=== PATIENT | male | born 1985 | race Caucasian/White ===

== ENCOUNTER 2024-04-26 03:36 | Inpatient (IN) | payer BC, MEDICAID ==
[~2024-04-26] VITALS: Ht 175.3 cm; Wt 95.7 kg
[2024-04-26] MEDS ORDERED: DILTIAZEM HCL 5MG/ML 5ML VIAL IV ONE (03:45)
[2024-04-26] MEDS: ADENOSINE 3 MG/ML 2ML VIAL IV ONE (04:03)
[2024-04-26] MEDS: DILTIAZEM HCL 5MG/ML 5ML VIAL IV NR (04:12)
[2024-04-26] MEDS: SODIUM CHLORIDE 0.9% 1,000 ML IV ONE (04:13)
[2024-04-26] MEDS ORDERED: DILTIAZEM HCL 125 MG in DEXT 5% WATER 100 ML IV ONE (05:00)
[2024-04-26] MEDS: DILTIAZEM HCL 125 MG in DEXT 5% WATER 100 ML IV NR (05:23)
[2024-04-26 05:52] LABS: CARBON DIOXIDE 25 mEq/L (21-32); CHLORIDE 111 mEq/L (98-107); POTASSIUM 3.7 mEq/L (3.5-5.1); SODIUM 144 mEq/L (136-145)
[2024-04-26 05:53] LABS: CALCIUM 8.5 mg/dL (8.7-10.4)
[2024-04-26 05:57] LABS: BASOPHILS % 0.6 % (0.0-2.0); HEMATOCRIT. 47.5 % (42.0-52.0); MEAN CORPUSCULAR HGB CONC 33.8 g/dL (31.0-37.0); MEAN CORPUSCULAR VOLUME 85.7 fL (80.0-94.0); MEAN PLATELET VOLUME 9.2 fl (7.4-10.4); MONOCYTES % 6.8 % (2.0-8.0); NEUTROPHILS % 74.6 % (40.0-76.0); PLATELET 131 x1000/uL (130-400); RED BLOOD CELL COUNT 5.54 mill/uL (4.7-6.1); RED CELL DISTRIBUTION WIDTH 13.9 % (11.6-14.6); WHITE BLOOD COUNT 13.4 x1000/uL (4.5-11.0)
[2024-04-26 05:58] LABS: GLUCOSE 111 mg/dL (70-105); UREA NITROGEN BLOOD 15 mg/dL (9-23)
[2024-04-26] MEDS ORDERED: IPRATROPIUM/ALBUTEROL 0.5-3(2.5)MG/3ML NEB HHN PRN (13:30)
[2024-04-26] MEDS ORDERED: ONDANSETRON HCL 4MG/2ML INJ IV PRN (13:30)
[2024-04-26] MEDS: ENOXAPARIN 40MG/0.4ML SYR SUBCUT SCH (13:30)
[2024-04-26] MEDS ORDERED: ACETAMINOPHEN 650MG SUPP PR PRN (13:30)
[2024-04-26 14:18] LABS: T4 FREE 1.44 ng/dL (0.89-1.76); THYROID STIMULATING HORMONE 3.16 uIU/mL (0.55-4.78)
[2024-04-26] MEDS: SODIUM CHLORIDE 0.9% 3ML FLUSH IVF SCH (14:52)
[2024-04-26] MEDS: PIPERACILLIN/TAZO 3.375G/50ML 50 ML IV SCH (14:56)
[2024-04-26] MEDS ORDERED: IOHEXOL-350 100 ML BOTTLE ONE (15:24)
[2024-04-26 16:21] VITALS: BP 128/74; PULSE 88; RESP 18; TEMP 36.44736; O2SAT 98
[2024-04-26 16:23] VITALS: BP 128/74; PULSE 88; RESP 18; TEMP 36.5848
[2024-04-26] MEDS ORDERED: INFLUENZA VACCINE 05/PF 0.5 ML SYRINGE IM ONE (17:15)
[2024-04-26] MEDS ORDERED: AZITHROMYCIN 500MG/250ML 250 ML IV SCH (19:00)
[2024-04-26] MEDS: AZITHROMYCIN 500 MG TABLET PO SCH (19:16)
[2024-04-26 19:37] LABS: CLARITY URINE CLEAR (CLEAR); COLOR URINE YELLOW (YELLOW); GLUCOSE URINE TRACE (NEGATIVE); KETONES URINE NEGATIVE (NEGATIVE); LEUKOCYTE ESTERASE URINE NEGATIVE (NEGATIVE); NITRITE URINE NEGATIVE (NEGATIVE); OCCULT BLOOD URINE NEGATIVE (NEGATIVE); PH URINE 6.5 (4.5-8.0); PROTEIN URINE NEGATIVE (NEGATIVE); SPECIFIC GRAVITY URINE 1.054 (1.005-1.030); UROBILINOGEN URINE 0.2 E.U./dL (0.2-1.0)
[2024-04-26 19:44] LABS: *AMPHETAMINES SCREEN URINE NEGATIVE (NEGATIVE); *BARBITURATES SCREEN URINE NEGATIVE (NEGATIVE); *BENZODIAZEPINES SCREEN URINE NEGATIVE (NEGATIVE); *COCAINE SCREEN URINE NEGATIVE (NEGATIVE); METHADONE URINE SCREEN NEGATIVE (NEGATIVE)
[2024-04-26 19:45] LABS: CANNABINOID URINE SCREEN NEGATIVE (NEGATIVE); ECSTASY MDMA SCREEN URINE NEGATIVE (NEGATIVE); OPIATES URINE SCREEN NEGATIVE (NEGATIVE); PHENCYCLIDINE URINE SCREEN NEGATIVE (NEGATIVE)
[2024-04-26 20:00] VITALS: BP 138/86; PULSE 89; RESP 15; TEMP 36.22512; O2SAT 98
[2024-04-26 20:05] LABS: BACTERIA URINE NONE SEEN; RBC URINE NONE SEEN /hpf (0-2); SQUAMOUS EPITHELIAL CELL URINE NONE SEEN /lpf (RARE/1+); WBC URINE NONE SEEN /hpf (0-2)
[2024-04-26] MEDS: INFLUENZA VACCINE 05/PF 0.5 ML SYRINGE IM ONE (21:29)
[2024-04-27 00:01] VITALS: BP 129/65; PULSE 88; RESP 17; TEMP 36.114; O2SAT 98
[2024-04-27 01:25] LABS: TROPONIN I HIGH SENSITIVITY 130 ng/L (3.0-53)
[2024-04-27] MEDS: ASPIRIN 81MG EC TABLET PO SCH (02:26)
[2024-04-27 04:00] VITALS: BP 133/68; PULSE 82; RESP 15; TEMP 36.55848; O2SAT 99
[2024-04-27] MEDS: PANTOPRAZOLE 40MG DR TABLET PO SCH (06:53)
[2024-04-27 08:00] VITALS: BP 127/78; PULSE 70; RESP 18; TEMP 36.114; O2SAT 100
[2024-04-27 12:00] VITALS: BP 139/87; PULSE 98; RESP 18; TEMP 36.44736; O2SAT 99
[2024-04-27 16:00] VITALS: BP 123/76; PULSE 97; RESP 18; TEMP 36.114; O2SAT 97
[2024-04-27 18:39] LABS: BASOPHILS % 1.3 % (0.0-2.0); DIFFERENTIAL COMMENT 0; EOSINOPHILS % 8.2 % (0.0-5.0); HEMATOCRIT. 43.5 % (42.0-52.0); HEMOGLOBIN. 14.9 g/dL (14.0-18.0); LYMPHOCYTES % 26.3 % (20.0-50.0); MEAN CORPUSCULAR HEMOGLOBIN 29.3 pg (28.0-32.0); MEAN CORPUSCULAR HGB CONC 34.2 g/dL (31.0-37.0); MEAN CORPUSCULAR VOLUME 85.7 fL (80.0-94.0); MEAN PLATELET VOLUME 8.8 fl (7.4-10.4); MONOCYTES % 10.4 % (2.0-8.0); NEUTROPHILS % 53.8 % (40.0-76.0); PLATELET 103 x1000/uL (130-400); RED BLOOD CELL COUNT 5.08 mill/uL (4.7-6.1); RED CELL DISTRIBUTION WIDTH 13.9 % (11.6-14.6); WHITE BLOOD COUNT 5.7 x1000/uL (4.5-11.0)
[2024-04-27 18:48] LABS: CHLORIDE 110 mEq/L (98-107); SODIUM 137 mEq/L (136-145)
[2024-04-27 18:49] LABS: CALCIUM 8.8 mg/dL (8.7-10.4); CARBON DIOXIDE 24 mEq/L (21-32)
[2024-04-27 18:54] LABS: CREATININE 0.9 mg/dL (0.6-1.3); GLUCOSE 109 mg/dL (70-105); UREA NITROGEN BLOOD 10 mg/dL (9-23)
[2024-04-27 19:54] LABS: TROPONIN I HIGH SENSITIVITY 94 ng/L (3.0-53)
[2024-04-27 20:00] VITALS: BP 133/87; PULSE 86; RESP 20; TEMP 36.72516; O2SAT 100
[2024-04-27 22:39] LABS: TROPONIN I HIGH SENSITIVITY 102 ng/L (3.0-53)
[2024-04-27 22:57] LABS: TROPONIN I HIGH SENSITIVITY 114 ng/L (3.0-53)
[2024-04-28] VITALS: BP 132/85; PULSE 82; RESP 20; TEMP 36.6696; O2SAT 98
[2024-04-28 04:00] VITALS: BP 140/90; PULSE 86; RESP 20; TEMP 36.6696; O2SAT 99
[2024-04-28 08:00] VITALS: BP 129/84; PULSE 69; RESP 19; TEMP 36.50292; O2SAT 99
[2024-04-28 12:00] VITALS: BP 124/87; PULSE 82; RESP 16; TEMP 36.61404; O2SAT 100
[2024-04-28] MEDS ORDERED: AMOX1TAB16 MT (12:43)
[2024-04-28] MEDS ORDERED: METO25TA6 PO (12:43)
[2024-04-28] MEDS: METOPROLOL TARTRATE 25MG TABLET PO SCH (13:45)
[2024-04-28 15:04] VITALS: BP 124/87; PULSE 82; TEMP 97.9; O2SAT 98
== END 2024-04-28 18:10 | disposition home or self-care (01) | DRG 201 ==
LOC: EDBEDREQ 03:48 → ER 03:55 → EDBEDREQSVC 06:56 → EDBEDREQ 06:56 → EDBEDREQSVC 13:46 → 8WST 16:01
PROVIDERS: ADMIT Internal Medicine; ATTEND Internal Medicine
DX: I47.19 Other supraventricular tachycardia (principal); J69.0 Pneumonitis due to inhalation of food and vomit; J45.909 Unspecified asthma, uncomplicated; Z20.822 Contact with and (suspected) exposure to COVID-19
CPT/HCPCS: 36415; 71045; 71275; 80048; 80061; 80305; 80307; 81003; 83036; 83880; 84439; 84443; 84484; 85025; 85379; 87426; 90686; 93005; 93306; 99285; J0153; J1650; J2543; J3490; J7030; J7060; Q9967